=== PATIENT | male | born 1980 | race Hispanic/Latino ===

== ENCOUNTER 2018-02-08 14:36 | Emergency (ER) | payer BC, OTHER ==
[2018-02-08 16:08] LABS: RAPID GROUP A STREP POSITIVE (NEGATIVE)
[2018-02-08] MEDS ORDERED: LIDOCAINE HCL-MPF 1% 2ML VIAL ONE (16:22)
[2018-02-08] MEDS ORDERED: CEFTRIAXONE SODIUM 1 GM ONE (16:22)
== END 2018-02-08 17:05 | disposition home or self-care (01) ==
LOC: EDH 14:36
DX: J02.0 Streptococcal pharyngitis (principal)
CPT/HCPCS: 87804 ×2; 87880; 96372; 99283; J0696; J3490